=== PATIENT | female | born 2000 | race Caucasian/White ===

== ENCOUNTER 2024-04-11 19:49 | Emergency (ER) | payer BC ==
[2024-04-11 19:59] VITALS: O2SAT 100
--- NOTE | 2024-04-11 20:21 | ED Physician Documentation ---
History of Present Illness - Stated complaint Stated Complaint: FATIGUE,HAND PX - Chief complaint Chief Complaint: General - History obtained from History obtained from: Patient - Additonal information Additional information: 23-year-old otherwise healthy woman presents. 2 months ago she went camping. She had some tick bites as her to her dog. She developed a rash after that but it was kind of diffuse, not a bull's-eye rash. Over the last months she has had diffuse joint aches and then she noticed she is she wakes up with to fingertips of both hands being numb. She denies any significant neck pain but her hips and knees bother her usually earlier in the day. No fevers or chills. Mom has ankylosing spondylitis. PD PAST MEDICAL HISTORY - Past Medical History Past Medical History: No - Past Surgical History Past Surgical History: Yes General: Hiatal hernia repair - Present Medications Home Medications: Ambulatory Orders Medication Instructions Recorded Confirmed predniSONE [Deltasone] 40 mg PO DAILY 5 Days #10 tablet 04/11/24 - Allergies Allergies/Adverse Reactions: Allergies Allergy/AdvReac Type Severity Reaction Status Date / Time No Known Drug Allergies Allergy Verified 04/11/24 19:55 - Social History Does the pt smoke?: No Smoking Status: Never smoker Does the pt drink ETOH?: Yes Does the pt have substance abuse?: No - Immunizations Immunizations are current?: Yes - POLST Patient has POLST: No PD ED PE NORMAL - Vitals Vital signs reviewed: Yes - General General: Alert and oriented X 3, No acute distress - HEENT HEENT: PERRL, EOMI - Neck Neck: Supple, no meningeal sign, No bony TTP - Cardiac Cardiac: RRR, No murmur - Respiratory Respiratory: No respiratory distress, Clear bilaterally - Abdomen Abdomen: Normal bowel sounds, Soft, Non tender - Back Back: No CVA TTP, No spinal TTP - Derm Derm: Normal color, Warm and dry - Extremities Extremities: Other (Sensation throughout the upper extremities, vault mechanic strength, interosseous strength, thumb extension, flexion and extension of the wrist. No effusion of the knees, normal gait.) - Neuro Neuro: Alert and oriented X 3, Normal speech - Psych Psych: Normal mood, Normal affect Results - Vitals Vitals: Vital Signs - 24 hr 04/11/24 19:55 Temperature 36.8 C Heart Rate 60 Respiratory 16 Rate Blood Pressure 140/90 H O2 Saturation 100 Oxygen O2 Source Room air - Labs Labs: Laboratory Tests 04/11/24 04/11/24 04/11/24 20:30 20:30 20:30 WBC 5.6 RBC 4.39 Hgb 13.5 Hct 42.1 MCV 95.9 MCH 30.8 MCHC 32.1 RDW 12.9 Plt Count 193 MPV 10.2 Neut # (Auto) 3.0 Lymph # (Auto) 1.7 [place] # (Auto) 0.5 Eos # (Auto) 0.3 Baso # (Auto) 0.0 Absolute Nucleated RBC 0.00 Nucleated RBC % 0.0 ESR 4 Sodium 140 Potassium 3.9 Chloride 105 Carbon Dioxide 29 Anion Gap 6.0 BUN 17 Creatinine 0.8 Estimated GFR (MDRD) 88 L Glucose 88 Calcium 9.6 Total Bilirubin 0.3 AST 21 ALT 18 Alkaline Phosphatase 58 C-Reactive Protein < 0.5 Total Protein 7.3 Albumin 4.6 Globulin 2.7 Albumin/Globulin Ratio 1.7 Urine HCG, Qual 04/11/24 20:45 WBC RBC Hgb Hct MCV MCH MCHC RDW Plt Count MPV Neut # (Auto) Lymph # (Auto) [place] # (Auto) Eos # (Auto) Baso # (Auto) Absolute Nucleated RBC Nucleated RBC % ESR Sodium Potassium Chloride Carbon Dioxide Anion Gap BUN Creatinine Estimated GFR (MDRD) Glucose Calcium Total Bilirubin AST ALT Alkaline Phosphatase C-Reactive Protein Total Protein Albumin Globulin Albumin/Globulin Ratio Urine HCG, Qual NEGATIVE PD Medical Decision Making - ED course ED course: She comes in with complaints of bilateral hand numbness after waking in the morning. Also fatigue and multiple joint aches in the setting of a family history of ankylosing spondylitis. Her examination is normal. She tells me she only gets about 6 hours of sleep at night and improved sleep hygiene and experimentation with pillows regarding the paresthesias in the hands was encouraged. She was agreeable to a as needed prescription for prednisone but it sounds like she does not plan to start it immediately. The patient was counseled as to the diagnosis and need for follow-up. I counseled the patient with regard to signs and symptoms that would necessitate an urgent reevaluation in the emergency department. They understand they are welcome to return at any time if worse or if not improving as expected. This document was made in part using voice recognition software. While efforts are made to proofread this documents, sound alike and grammatical errors may occur. Departure - Departure Disposition: 01 Home, Self Care Clinical Impression: Polyarthritis Fatigue Qualifiers: Fatigue type: unspecified Qualified Code(s): R53.83 - Other fatigue Condition: Good Record reviewed to determine appropriate education?: Yes Instructions: ED Paraesthesias, ED Joint Pain Prescriptions: predniSONE [Deltasone] 40 mg PO DAILY 5 Days #10 tablet Comments: Your labs were normal, most importantly given your symptoms your ESR and CRP were normal which I think rule out any significant inflammatory process. There is Lyme testing pending and we will call you if positive. You can choose to or not to fill the prednisone which you have had to help with in the past with more severe symptoms. In the meantime though, I think you should try some easy things such as improved sleep hygiene, you tell me you are only getting about 6 hours a night which is insufficient so go to bed earlier. Call your doctor to arrange a follow-up appointment, make the next available appointment. In the interim, return anytime if worse or if new symptoms develop. Forms: PCP List
[2024-04-11 20:36] LABS: BASOPHILS % (AUTO) 0.7 %; EOSINOPHILS # (AUTO) 0.3 10^3/uL (0.0-0.7); HCT - HEMATOCRIT 42.1 % (37.0-47.0); HGB - HEMOGLOBIN 13.5 g/dL (12.0-16.0); LYMPHOCYTES # (AUTO) 1.7 10^3/uL (1.5-3.5); LYMPHOCYTES % (AUTO) 30.1 %; MEAN CORPUSCULAR HEMOGLOBIN 30.8 pg (27.0-31.0); MEAN CORPUSCULAR HGB CONC 32.1 g/dL (32.0-36.0); MEAN CORPUSCULAR VOLUME 95.9 fL (81.0-99.0); MEAN PLATELET VOLUME 10.2 fL (7.9-10.8); MONOCYTES # (AUTO) 0.5 10^3/uL (0.0-1.0); MONOCYTES % (AUTO) 9.4 %; NEUTROPHILS % (AUTO) 54.8 %; PLT - PLATELET COUNT 193 10^3/uL (130-450); RED BLOOD COUNT 4.39 10^6/uL (4.20-5.40); RED CELL DISTRIBUTION WIDTH 12.9 % (12.0-15.0); WHITE BLOOD COUNT 5.6 x10^3/uL (4.8-10.8)
[2024-04-11 20:54] LABS: ALBUMIN 4.6 g/dL (3.2-5.5); ALBUMIN/GLOBULIN RATIO 1.7 (1.0-2.2); ALKALINE PHOSPHATASE 58 IU/L (42-121); ALT ALANINE AMINOTRANSFERASE 18 IU/L (10-60); AST ASPARTATE AMINOTRANSFERASE 21 IU/L (10-42); BILIRUBIN,TOTAL 0.3 mg/dL (0.2-1.0); BUN - BLOOD UREA NITROGEN 17 mg/dL (6-20); CALCIUM 9.6 mg/dL (8.5-10.3); CARBON DIOXIDE - CO2 29 mmol/L (21-32); CHLORIDE 105 mmol/L (101-111); CREATININE 0.8 mg/dL (0.6-1.3); CRP - C-REACTIVE PROTEIN < 0.5 mg/dL (<0.5); GFR - MDRD 88 (>89); GLUCOSE 88 mg/dL (74-104); POTASSIUM 3.9 mmol/L (3.5-4.5); SODIUM 140 mmol/L (135-145); TOTAL PROTEIN 7.3 g/dL (6.4-8.9)
[2024-04-11 21:09] LABS: HCG UR QUAL NEGATIVE
[2024-04-11 21:36] VITALS: BP 144/82
[2024-04-14 06:12] LABS: LYME TOTAL AB CIA Negative (Negative)
== END 2024-04-11 21:28 | disposition home or self-care (01) ==
LOC: ED 19:49
DX: M13.0 Polyarthritis, unspecified (principal); R53.83 Other fatigue
CPT/HCPCS: 36415; 80053; 81025; 85025; 85651; 86140; 86618; 99283; 99284